=== PATIENT | male | born 1940 | race Caucasian/White ===

== ENCOUNTER 2022-07-16 10:16 | Emergency (ER) | payer MEDICARE, SELFPAY ==
--- NOTE | ~2022-07-16 | XR_ITS ---
EXAMINATION: XR hand LT min 3V INDICATION: Left hand pain, initial encounter TECHNIQUE: Three views of the left hand are obtained. COMPARISON: None available FINDINGS: There is an acute, traumatic, closed, comminuted fracture in the proximal neck of the first metacarpal. One plane of the fracture appears to extend to the first metacarpophalangeal joint. 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 No additional acute fracture is identified. 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 IMPRESSION: 1. Comminuted fracture in the proximal neck of the first metacarpal which appears to extend to the me tacarpophalangeal joint. Reviewed, dictated and finalized at location A. IMPRESSION: 1. Comminuted fracture in the proximal neck of the first metacarpal which appea rs to extend to the metacarpophalangeal joint.
--- NOTE | 2022-07-16 10:23 | ED.UPPEXIN ---
HPI - Extremity Injury (Upper) General Chief Complaint: Extremity Injury, Upper Stated Complaint: Fall Injury/Thumb Time Seen by Provider: 07/16/22 10:24 Source: patient and RN notes reviewed Mode of arrival: ambulatory Limitations: no limitations History of Present Illness HPI narrative: 82-year-old male presents to the [facility] with complaints of swelling and bruising to the left dorsal hand. States that he was try to get his pants on the middle the night when he fell and bumped his hand on something. Did not hurt his back. No hitting of his head. No loss of consciousness. Patient denies any pain in the hand, daughter was concerned because it is bruised and swollen. Full range of motion noted. Related Data Home Medications Medication Instructions Recorded Confirmed No Home Medications 07/16/22 07/16/22 Allergies Allergy/AdvReac Type Severity Reaction Status Date / Time No Known Allergies Allergy Verified 07/16/22 10:31 Review of Systems Review of Systems: All systems reviewed & are unremarkable except as noted in HPI and below Constitutional: Constitutional: Reports no additional constitutional complaints, Denies chills and Denies fever(s) Eyes: Eyes: Reports no additional eye complaints ENT: Reports system reviewed and no additional complaints, except as documented Cardiovascular: Cardiovascular: Reports no additional cardiovascular complaints Respiratory: Respiratory: Reports no additional respiratory complaints Gastrointestinal: Gastrointestinal: Reports no additional gastrointestinal complaints Musculoskeletal: Musculoskeletal: Reports as per HPI, Denies arthralgias and Reports joint swelling Integumentary/Breasts: Skin/Breast: Reports system reviewed and no additional complaints, except as docu Neurologic: Reports system reviewed and no additional complaints, except as documented Psychiatric: Psychiatric: Reports no additional psychiatric complaints Allergic/Immunologic: Allergic/Immunologic: Reports no additional allergic/immunologic complaints PMFSH Past Medical History Medical History No significant medical problems Surgical History Surgical History (Updated 07/16/22 @ 10:32 by Samantha Rodriguez APRN) H/O major orthopedic surgery Left knee History of tonsillectomy Comments At the time of my signature, I reviewed and agree with the nursing past medical, surgical, social, and family history. There is no relevant family history pertinent to the patient complaint. Exam Const: General: healthy appearing, no acute distress and alert Nutritional Appearance: well nourished Orientation/consciousness: patient oriented x3 Limitations: no limitations HENMT: Head: normal to inspection Ears: external ears normal Eyes: General: appearance normal, both eyes and all related structures Pupils: Equal, round and reactive pupils present Neck: Neck: normal visual inspection, no lymphadenopathy and no meningeal signs Chest: Chest palpation & inspection: normal inspection of the chest Resp: Effort & Inspection: normal respiratory effort and no use of accessory muscles Auscultation: clear to auscultation bilaterally, no crackles, no rales, no rhonchi and no wheezes Cardio: Rate: regular rate Rhythm: regular rhythm GI: GI Palp: Yes Soft to palpation and No Tenderness to palpation present (GI) Back/Spine/Pelvis: Cervical Spine: normal cervical lordosis Thoracic/Lumbar Spine: thoracic and lumbar spine normal to inspection Skin: General skin exam: normal color Rashes: no rashes Wounds: no wounds Neuro: General: patient oriented x3, moves all extremities, no meningeal signs and no focal motor deficits Cranial nerves: Yes Equal, round and reactive pupils present Speech: normal speech Gait exam (Neuro): Normal gait present Extrem: General: normal to inspection, full ROM and capillary refill normal Left upper extremity: hand normal cap
[2022-07-16 10:24] VITALS: BP 117/63; PULSE 92; RESP 20; TEMP 36.4; O2SAT 100
[2022-07-16 10:32] VITALS: BP 117/63; PULSE 92; RESP 20; TEMP 36.4; O2SAT 100
== END 2022-07-16 11:24 | disposition home or self-care (01) ==
PROVIDERS: Emergency Provider Nurse Practitioner; PCP Internal Medicine
DX: S62.252A Displaced fracture of neck of first metacarpal bone, left hand, initial encounter for closed fracture (principal); W22.8XXA Striking against or struck by other objects, initial encounter
CPT/HCPCS: 29125; 73130; 99204; A4565; G0463

== ENCOUNTER 2022-08-15 18:11 | Emergency (ER) | payer MEDICARE, SELFPAY ==
--- NOTE | ~2022-08-15 | XR_ITS ---
EXAMINATION: XR tibia fibula LT 2V DATE: 08/15/2022 18:56 INDICATION: Palpable knot at the left lower leg post injury 2 weeks prior TECHNIQUE: Anteroposterior and lateral views of the left tibia and fibula were obtained. COMPARISON: None. FINDINGS: Bone alignment is normal. No fracture. Minimal to mild polyarticular osteoarthritis at the left knee, ankle and visualized foot. Approximately 2 cm sclerotic lesion in the proximal metaphyseal region of the left tibia. Prominent dense soft tissue swelling anterior to the proximal left tibial diaphysis which given history of trauma most likely represents a hematoma. IMPRESSION: 1. Likely subcutaneous hematoma overlying the proximal left tibial diaphysis. No acute osseous abnorm ality. 2. 2 cm sclerotic lesion at the proximal left tibial metaphysis statistically most likely to represen t either benign chondroma, bone infarct or bone island. Metastatic disease with the unlikely in the p eripheral extremities. Correlate with any prior outside imaging and if clinically indicated or if the re is history of prior malignancy, bone scan could be obtained for further evaluation. Reviewed, dictated and finalized at location A. IMPRESSION: 1. Likely subcutaneous hematoma overlying the proximal left tibial diaphysis. N o acute osseous abnormality. 2. 2 cm sclerotic lesion at the proximal left tibial metaphysis statistically m ost likely to represent either benign chondroma, bone infarct or bone island. M etastatic disease with the unlikely in the peripheral extremities. Correlate wi th any prior outside imaging and if clinically indicated or if there is history of prior malignancy, bone scan could be obtained for further evaluation.
[2022-08-15 18:26] VITALS: BP 120/67; PULSE 88; RESP 20; TEMP 36.4; O2SAT 100
--- NOTE | 2022-08-15 18:51 | ED.LOWEXIN ---
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 Patient has raised tissue to left lower leg anterior sotelo area that is tender to palpation with increased pain with ambulation stated. Patient has some scabbing to tissue area and also some redness of skin with no warmth of tissue noted. Patient has strong left pedal pulse, patient denies any numbness or tingling to his left leg or foot. He reports that he has been applying ice and taking Ibuprofen complaint: leg injury Onset (ago): week(s) (2) Type of Injury: other (contusion) Severity scale (1-10): 5 Treatments prior to arrival: cold therapy and other (Ibuprofen) Related Data Allergies Allergy/AdvReac Type Severity Reaction Status Date / Time No Known Allergies Allergy Verified 08/15/22 18:41 Review of Systems Review of Systems: CONSTITUTIONAL: Denies fever, chills, or sweats. EYES: Denies visual changes, redness, or discharge. ENT: Denies rhinorrhea, congestion, sore throat, or otalgia. CARDIOVASCULAR: Denies chest pain, palpitations, or edema. RESPIRATORY: Denies cough or dyspnea. GASTROINTESTINAL: Denies abdominal pain, nausea, vomiting, or diarrhea. GENITOURINARY: Denies dysuria or hematuria. SKIN: Denies rash or itching.healing scabbed tissue to left lower leg with some redness to tissue area no acute warmth noted MUSCULOSKELETAL: Denies back pain, positive for pain to left lower leg anterior area,, or myalgia. NEUROLOGIC: Denies headache, numbness, or weakness. PSYCHIATRIC: Denies anxiety or depression. 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 There is no relevant family history pertinent to the presenting complaint Exam Narrative: GENERAL: Well-appearing, well-nourished, and in no acute distress. HEAD: Normocephalic, atraumatic. EYES: PERRLA and EOMI. ENT: Nares clear, no rhinorrhea or epistaxis. Mucous membranes moist.TM's normal, throat pink with no lesions, tonsils absent. NECK: Supple. no lymphadenopathy CHEST: Clear to auscultation. No respiratory distress.SAO2 100% on room air HEART: Regular rate and rhythm. No murmur heard. Normal peripheral pulses. ABDOMEN: Soft, nontender, nondistended, normal active bowel sounds. EXTREMITIES: Normal range of motion,swelling to anterior lower left leg sotelo area with increased pain with ambulation SKIN: Warm, dry, scabbed tissue with redness and swelling anterior lower left leg NEURO: No focal deficits. Alert and oriented x3. Course Course Level of Care: Express Care Visit Vital Signs Vital signs: Vital Signs Temperature 36.4 C 08/15/22 18:26 Pulse Rate 88 08/15/22 18:26 Respiratory Rate 20 08/15/22 18:26 Blood Pressure 120/67 08/15/22 18:26 Pulse Oximetry 100 08/15/22 18:26 Oxygen Delivery Room Air 08/15/22 18:26 Temperature 36.4 C 08/15/22 18:26 Pulse Rate 88 08/15/22 18:26 Respir
--- NOTE | 2022-08-15 19:59 | ED.LOWEXIN ---
HPI - Extremity Injury (Lower) General Chief Complaint: Extremity Injury, Lower Stated Complaint: Left leg injury Time Seen by Provider: 08/15/22 18:51 Source: patient, RN notes reviewed and old records reviewed Mode of arrival: ambulatory Limitations: no limitations History of Present Illness HPI Narrative: 8 Related Data Allergies Allergy/AdvReac Type Severity Reaction Status Date / Time No Known Allergies Allergy Verified 08/15/22 18:41 [facility] Past Medical History Medical History No significant medical problems Surgical History Surgical History (Updated 07/16/22 @ 10:32 by Samantha Rodriguez APRN) H/O major orthopedic surgery Left knee History of tonsillectomy Course Vital Signs Vital signs: Vital Signs Temperature 36.4 C 08/15/22 18:26 Pulse Rate 88 08/15/22 18:26 Respiratory Rate 20 08/15/22 18:26 Blood Pressure 120/67 08/15/22 18:26 Pulse Oximetry 100 08/15/22 18:26 Oxygen Delivery Room Air 08/15/22 18:26 Temperature 36.4 C 08/15/22 18:26 Pulse Rate 88 08/15/22 18:26 Respiratory Rate 20 08/15/22 18:26 Blood Pressure 120/67 08/15/22 18:26 Pulse Oximetry 100 08/15/22 18:26 Oxygen Delivery Room Air 08/15/22 18:26 MDM - Extremity Injury (Lower) Imaging Data My impression: hematoma Radiologist's impression: [facility] [address] [place] [address] XRay Report Signed Patient: Kelley Quintanilla : 1940 MR#: [id number] Age/Sex: 82 / M Acct:[id number] Loc: [facility]? ? ADM Date: 08/15/22Attending Dr: Ordering Physician: Cinthya Lugo APRN Date of Service: 08/15/22 Procedure(s): XR tibia fibula LT 2V Accession Number(s): [id number] cc: Diamond, Herve Mendoza MD; Cinthya Lugo APRN~ EXAMINATION: XR tibia fibula LT 2V DATE: 08/15/2022 18:56 INDICATION: Palpable knot at the left lower leg post injury 2 weeks prior TECHNIQUE: Anteroposterior and lateral views of the left tibia and fibula were obtained. COMPARISON: None. FINDINGS: Bone alignment is normal. No fracture. Minimal to mild polyarticular osteoarthritis at the left knee, ankle and visualized foot. Approximately 2 cm sclerotic lesion in the proximal metaphyseal region of the left tibia. Prominent dense soft tissue swelling anterior to the proximal left tibial diaphysis which given history of trauma most likely represents a hematoma. IMPRESSION: 1. Likely subcutaneous hematoma overlying the proximal left tibial diaphysis. No acute osseous abnormality. 2. 2 cm sclerotic lesion at the proximal left tibial metaphysis statistically most likely to represent either benign chondroma, bone infarct or bone island. Metastatic disease with the unlikely in the peripheral extremities. Correlate with any prior outside imaging and if clinically indicated or if there is history of prior malignancy, bone scan could be obtained for further evaluation. Reviewed, dictated and finalized at location A. Dictated By:? Dawood Rawls MD? 08/15/221936 Signed By:? ? <Electronically signed by? Dawood Rawls MD in OV> Critical Care Time Critical Care Time Critical Care Time: No Discharge Plan Discharge Clinical Impression: Hematoma of left lower leg, Redness and swelling of lower leg Patient Disposition: Home, Self-Care Condition: Stable Instructions: Antibiotic Form, Hematoma (ED) Additional Instructions: Elastic wrap or orthopedic splint as directed for comfort for the next 5-7 days Keep leg elevated is much as possible Tylenol for lesser pain Ibuprofen regularly for the next 2-3 days for the inflammation Follow-up with PCP if further problems or concerns Ice to the area 20-30 minutes 4-6 times a day Elevate above heart Follow-up with PCP in regards
== END 2022-08-15 20:10 | disposition home or self-care (01) ==
PROVIDERS: Emergency Provider Registered Nurse; PCP Internal Medicine
DX: S80.12XA Contusion of left lower leg, initial encounter (principal); X58.XXXA Exposure to other specified factors, initial encounter; L53.9 Erythematous condition, unspecified
CPT/HCPCS: 73590; 99213; G0463

== ENCOUNTER 2022-08-22 09:53 | Outpatient (CLI) | payer MEDICARE, SELFPAY ==
--- NOTE | ~2022-08-22 | XR_ITS ---
EXAM: XR wrist LT min 3V DATE: 08/22/2022 10:15 HISTORY: FRACTURE L 1ST METACARPAL, OUT OF CAST, 5 WKS POST . COMPARISON: 07/16/2022. FINDINGS: Comminuted proximal left first metacarpal fracture, stable alignment with unchanged medial angulation. Fracture lines are less visible. Callus is present. IMPRESSION: Proximal left first metacarpal fracture, healing with residual angulation. Reviewed, dictated and finalized at location K. IMPRESSION: Proximal left first metacarpal fracture, healing with residual angu lation.
== END 2022-08-22 09:54 | disposition home or self-care (01) ==
PROVIDERS: PCP Internal Medicine; Visit Provider Plastic Surgery
DX: S62.241D Displaced fracture of shaft of first metacarpal bone, right hand, subsequent encounter for fracture with routine healing (principal); X58.XXXD Exposure to other specified factors, subsequent encounter
CPT/HCPCS: 73110

== ENCOUNTER 2022-09-12 09:08 | Outpatient (CLI) | payer MEDICARE, SELFPAY ==
--- NOTE | ~2022-09-12 | XR_ITS ---
XR hand LT min 3V DATE: 09/12/2022 09:31 INDICATION: First metacarpal fracture TECHNIQUE: 3 views COMPARISON: 08/22/2022 left wrist FINDINGS: There is a comminuted fracture at the base and proximal shaft of the first metacarpal bone with mild lateral displacement and apex lateral angulation, without significant change in position or alignment since 08/22/2022. There is periosteal reaction consistent with Formation/healing. Normal alignment at the first carpometacarpal and first metacarpophalangeal joints. There is polyarticular osteoarthritis the wrist and hand. IMPRESSION: Healing fracture of base and proximal shaft of first metacarpal bone Reviewed, dictated and finalized at location A. IMPRESSION: Healing fracture of base and proximal shaft of first metacarpal bon grace
== END 2022-09-12 09:09 | disposition home or self-care (01) ==
PROVIDERS: PCP Internal Medicine; Visit Provider Plastic Surgery
DX: S62.242 Displaced fracture of shaft of first metacarpal bone, left hand (principal); X58.XXXD Exposure to other specified factors, subsequent encounter
CPT/HCPCS: 73130

== ENCOUNTER 2024-03-24 08:35 | Day surgery (SDC) | payer MEDICARE, SELFPAY ==
--- NOTE | ~2024-03-24 | XR_ITS ---
EXAMINATION: XR chest 1V portable DATE: 03/24/2024 09:22 INDICATION: Esophageal obstruction. TECHNIQUE: A single frontal view of the chest was obtained. COMPARISON: None. FINDINGS: There is no pneumonia, pleural effusion, or pneumothorax. The heart size is normal. IMPRESSION: 1. No acute cardiopulmonary disease. Reviewed, dictated and finalized at location A.
--- NOTE | 2024-03-24 08:46 | ED.EXTPRO ---
HPI - Extremity Problem General Chief complaint: Unspecified Stated complaint: diff swallowing Time Seen by Provider: 03/24/24 08:36 History of Present Illness HPI Narrative: 83-year-old male present to the emergency department for evaluation for difficulty swallowing since yesterday. Patient does report prior history of having temporary esophageal obstructions but typically resolves after just a few seconds to minutes. Patient was eating pork tenderloin yesterday approximately 2:30 p.m. and states he has been able to tolerate p.o. since then. Patient did fail a p.o. 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 Kidney stone Surgical History Surgical History (Updated 07/16/22 @ 10:32 by Samantha Rodriguez APRN) H/O major orthopedic surgery Left knee History of tonsillectomy Social History Social History (Updated 08/19/22 @ 16:33 by Cinthya Lugo NP) Smoking status: Never smoker Substance use type: does not use Living arrangements: with family Gender identity (if verbalized by the patient): Male Course Vital Signs Vital signs: Vital Signs Temperature 97.8 F 03/24/24 08:50 Pulse Rate 90 03/24/24 08:50 Respiratory Rate 18 03/24/24 08:50 Blood Pressure 122/70 03/24/24 08:50 Pulse Oximetry 100 03/24/24 08:50 Oxygen Delivery Room Air 03/24/24 08:50 Temperature 97.8 F 03/24/24 08:50 Pulse Rate 90 03/24/24 08:50 Respiratory Rate 18 03/24/24 08:50 Blood Pressure 122/70 03/24/24 08:50 Pulse Oximetry 100 03/24/24 08:50 Oxygen Delivery Room Air 03/24/24 08:50 MDM - Extremity (Nontraumatic) MDM Narrative Medical decision making narrative: 83-year-old male presented the emergency department for evaluation of suspected esophageal food impaction. Patient describes similar symptoms over the last few months but they typically resolve. Patient states he has had a football since approximately 230. GI was consulted and patient will be taken to the GI lab. On re-examination patient feels he is still unable to tolerate p.o.. Lab Data 03/24/24 09:11 03/24/24 09:11 Labs: Lab Results 03/24/24 Range/Units 09:11 WBC 18.2 H (4.5-10.0) K/mm3 RBC 5.01 (4.6-6.20) M/mm3 Hgb 15.6 (14.0-18.0) g/dL Hct 48.3 (42.0-52.0) % MCV 96.4 (80-100) fl MCH 31.1 (26-34) pg MCHC 32.3 (32-36) g/dl RDW 13.1 (11.5-14.5) % Plt Count 246 (150-375) k/mm3 MPV 9.7 (7.4-10.4) fl Immature Gran % (Auto) Not Reportable Neut % (Auto) Not Reportable Lymph % (Auto) Not Reportable [place] % (Auto) Not Reportable Eos % (Auto) Not Reportable Baso % (Auto) Not Reportable Lymph # (Auto) Not Reportable [place] # (Auto) Not Reportable Eos # (Auto) Not Reportable Baso # (Auto) Not Reportable Abs Immat Gran (auto) Not Reportable Absolute Neuts (auto) Not Reportable Absolute Nucleated RBC Not Reportable Total Counted 100 Neutrophils % (Manual) 58 (46-73) % Lymphocytes % (Manual) 38.0 (18-44) % Monocytes % (Manual) 4 (3-9) % Nucleated RBC % Not Reportable Abs Lymphs (Manual) 6.91 H (1.1-4.5) K/mm3 Abs Monocytes (Manual) 0.72 (0.1-0.90) K/mm3 Platelet Estimate Adequate (Adequate) Stomatocytes 1+ Schistocytes None seen PT 13.2 (11.1-14.7) Seconds INR 1.0 APTT 30.0 (22.3-36.8) Seconds Sodium 142 (137-145) mmol/L Potassium 4.1 (3.4-5.0) mmol/L Chloride 109 H (98-107) mmol/L Carbon Dioxide 24 (22-30) mmol/L Anion Gap 9 (4-12) mmol/L BUN 29 H (9-20) mg/dL Creatinine 1.50 H (0.7-1.3) mg/dL
[2024-03-24 08:50] VITALS: BP 122/70; PULSE 90; RESP 18; TEMP 36.6; O2SAT 100
[2024-03-24] MEDS: GLUCAGON FOR INJ 1 MG VIAL IM (08:58)
[2024-03-24 09:16] LABS: Hematocrit 48.3 % (42.0-52.0); Hemoglobin 15.6 g/dL (14.0-18.0); Mean Corpuscular HGB Conc 32.3 g/dl (32-36); Mean Corpuscular Hemoglobin 31.1 pg (26-34); Mean Corpuscular Volume 96.4 fl (80-100); Mean Platelet Volume 9.7 fl (7.4-10.4); Platelet Count Result 246 k/mm3 (150-375); Red Blood Count 5.01 M/mm3 (4.6-6.20); Red Cell Distribution Width 13.1 % (11.5-14.5); White Blood Count 18.2 K/mm3 (4.5-10.0)
[2024-03-24 09:26] LABS: Lymphocytes Absolute Manual 6.91 K/mm3 (1.1-4.5); Monocytes Absolute Manual 0.72 K/mm3 (0.1-0.90); Monocytes Percent Manual 4 % (3-9); Neutrophils Percent Manual 58 % (46-73); Platelet Estimate Adequate (Adequate); Schistocytes None Seen; Total Cells Counted 100
[2024-03-24 09:27] LABS: Stomatocytes 1+
[2024-03-24 09:29] LABS: Prothrombin Time 13.2 Seconds (11.1-14.7)
[2024-03-24 09:30] LABS: Alanine Aminotransferase 16 U/L (6-50); Albumin Level 4.8 g/dL (3.5-5.1); Alkaline Phosphatase 81 U/L (38-126); Anion Gap 9 mmol/L (4-12); Aspartate Amino Transferase 28 U/L (17-59); Bilirubin,Total 1.1 mg/dL (0.2-1.3); Blood Urea Nitrogen 29 mg/dL (9-20); Calcium 9.7 mg/dL (8.4-10.2); Carbon Dioxide 24 mmol/L (22-30); Chloride 109 mmol/L (98-107); Estimated CRCL calculation 30 ml/min; Estimated Glomerular Filt Rate 44; Glucose 119 mg/dL (65-110); Potassium 4.1 mmol/L (3.4-5.0); Sodium 142 mmol/L (137-145)
[2024-03-24 10:58] VITALS: BP 132/75; PULSE 75; RESP 18; O2SAT 100
--- NOTE | 2024-03-24 11:30 | WPDANESEPPF ---
Anes - Initial Pre Proc Eval Procedure: EGD with food bolus removal Date/Time: 03/24/24 11:30 Surgeon: Johann Medina MD Pre Op Diagnosis: food bolus Pre Op Diagnosis: diff swallowing Patient Data Age: 83 Gender: M Height: 1.7 m Weight: 77 kg Last Vital Signs Temp 36.6 C 03/24/24 08:50 Pulse 75 03/24/24 10:58 Resp 18 03/24/24 10:58 BP 132/75 03/24/24 10:58 Pulse Ox 100 03/24/24 10:58 O2 Del Method Room Air 03/24/24 08:50 Allergies Allergy/AdvReac Type Severity Reaction Status Date / Time No Known Allergies Allergy Verified 03/24/24 12:34 Home Medications Medication Instructions Recorded Confirmed Type cephalexin 500 mg capsule 500 mg PO Q12H #20 caps 08/15/22 Rx Laboratory Tests 03/24/24 09:11 WBC 18.2 H K/mm3 (4.5-10.0) RBC 5.01 M/mm3 (4.6-6.20) Hgb 15.6 g/dL (14.0-18.0) Hct 48.3 % (42.0-52.0) MCV 96.4 fl (80-100) MCH 31.1 pg (26-34) MCHC 32.3 g/dl (32-36) RDW 13.1 % (11.5-14.5) Plt Count 246 k/mm3 (150-375) MPV 9.7 fl (7.4-10.4) Immature Gran % (Auto) Not Reportable Neut % (Auto) Not Reportable Lymph % (Auto) Not Reportable [place] % (Auto) Not Reportable Eos % (Auto) Not Reportable Baso % (Auto) Not Reportable Lymph # (Auto) Not Reportable [place] # (Auto) Not Reportable Eos # (Auto) Not Reportable Baso # (Auto) Not Reportable Abs Immat Gran (auto) Not Reportable Absolute Neuts (auto) Not Reportable Absolute Nucleated RBC Not Reportable Total Counted 100 Neutrophils % (Manual) 58 % (46-73) Lymphocytes % (Manual) 38.0 % (18-44) Monocytes % (Manual) 4 % (3-9) Nucleated RBC % Not Reportable Abs Lymphs (Manual) 6.91 H K/mm3 (1.1-4.5) Abs Monocytes (Manual) 0.72 K/mm3 (0.1-0.90) Platelet Estimate Adequate (Adequate) Stomatocytes 1+ Schistocytes None seen PT 13.2 Seconds (11.1-14.7) INR 1.0 APTT 30.0 Seconds (22.3-36.8) Sodium 142 mmol/L (137-145) Potassium 4.1 mmol/L (3.4-5.0) Chloride 109 H mmol/L (98-107) Carbon Dioxide 24 mmol/L (22-30) Anion Gap 9 mmol/L (4-12) BUN 29 H mg/dL (9-20) Creatinine 1.50 H mg/dL (0.7-1.3) Estim Creat Clear Calc 30 ml/min Estimated GFR 44 L (59 - ) Glucose 119 H mg/dL (65-110) Calcium 9.7 mg/dL (8.4-10.2) Total Bilirubin 1.1 mg/dL (0.2-1.3) AST 28 U/L (17-59) ALT 16 U/L (6-50) Alkaline Phosphatase 81 U/L (38-126) Total Protein 8.0 g/dL (6.3-8.2) Albumin 4.8 g/dL (3.5-5.1) Patient hx anesthesia problems: none Family hx anesthesia problems: none Results Review: All pre-operative results and documents have been reviewed as part of the pre-operative evaluation. 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 Kidney stone Surgical History Surgical History (Updated 07/16/22 @ 10:32 by Samantha Rodriguez APRN) H/O major orthopedic surgery Left knee History of tonsillectomy Social History Social History (Updated 08/19/22 @ 16:33 by Cinthya Lugo NP) Smoking status: Never smoker Substance use type: does not use Living arrangements: with family Gender identity (if verbalized by the patient): Male Anes - Eval Final PreProcedure Day of Procedure 03/24/24 11:30 Patient weight: overweight Heart: regular rate and rhythm Lungs: clear to auscultation Airway: Mallampati scale class II Neurological: alert and oriented Last oral intake: >/= 8 hours ASA classification: II Emergent: yes Anesthetic plan: proceed Anesthesia type and monitoring: general (TIVA) ETT and standard monitoring Results Review: All pre-operative results and documents have been reviewed as part of the pre-operative evaluation. Informed
[2024-03-24 12:35] VITALS: BP 136/70; PULSE 78; RESP 22; TEMP 36.6; O2SAT 100
[2024-03-24] MEDS: LACTATED RINGERS 1,000 ML 150 ML IV CONT (12:44)
--- NOTE | 2024-03-24 12:58 | PM.HPGS ---
History of Present Illness History of Present Illness Consent: Risks, benefits, and alternatives have been discussed and questions answered. Patient agrees to proceed with procedure. Chief complaint: diff swallowing Narrative: Kelley Quintanilla is a 83 year old male here with food bolus after had pork chop, he had similar episodes but always cleared out, never had urgent EGD. 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 Kidney stone Surgical History Surgical History (Updated 07/16/22 @ 10:32 by Samantha Rodriguez APRN) H/O major orthopedic surgery Left knee History of tonsillectomy Social History Social History (Updated 08/19/22 @ 16:33 by Cinthya Lugo NP) Smoking status: Never smoker Substance use type: does not use Living arrangements: with family Gender identity (if verbalized by the patient): Male Meds Home Medications and Allergies Home Medications Medication Instructions Recorded Confirmed Type cephalexin 500 mg capsule 500 mg PO Q12H #20 caps 08/15/22 Rx Allergies Allergy/AdvReac Type Severity Reaction Status Date / Time No Known Allergies Allergy Verified 03/24/24 12:34 Vital Signs Vital Signs - 24 hr 03/24/24 08:50 03/24/24 10:58 03/24/24 12:35 Temperature 97.8 F 97.9 F Pulse Rate 90 75 78 Respiratory Rate 18 18 22 H Blood Pressure 122/70 132/75 136/70 Pulse Oximetry 100 100 100 Oxygen Delivery Room Air Room Air Exam Const: General: comfortable and no acute distress Other: pleasant elderly HENMT: Face/Nose/Sinus: Normal nares present Eyes: General: appearance normal, both eyes and all related structures Neck: Neck: no JVD Resp: Auscultation: clear to auscultation bilaterally Cardio: Rate: regular rate Rhythm: regular rhythm GI: Inspection: non-distended GI Palp: Yes Soft to palpation Auscultation: normal bowel sounds Skin: General skin exam: normal color Neuro: General: patient oriented x3 Speech: normal speech Extrem: General: normal to inspection Psych: Mental Status: mental status grossly normal Assessment and Plan Assessment and plan (1) Esophageal obstruction due to food impaction: Code(s): T18.128A - Food in esophagus causing other injury, initial encounter; [id number] - Food entering into or through a natural orifice, initial encounter Status: Acute Assessment and Plan: urgent EGD, had food bolus and last few months with dysphagia to solids
[2024-03-24 13:35] VITALS: BP 103/46; PULSE 71; RESP 21; TEMP 36.3; O2SAT 93
[2024-03-24 13:45] VITALS: BP 127/91; PULSE 77; RESP 19; O2SAT 97
[2024-03-24 13:55] VITALS: BP 142/79; PULSE 77; RESP 20; O2SAT 98
== END 2024-03-24 14:09 | disposition home or self-care (01) ==
LOC: ANHED 08:51 → ANHENDO 08:52
PROVIDERS: Emergency Provider Emergency Medicine; PCP Internal Medicine; Visit Provider Internal Medicine Gastroenterology
PROC: 0DJ08ZZ Inspection of Upper Intestinal Tract, Via Natural or Artificial Opening Endoscopic (ICD-10-PCS; CPT 43235; principal; 2024-03-24 12:30)
DX: T18.128A Food in esophagus causing other injury, initial encounter (principal); W44.F3XA Food entering into or through a natural orifice, initial encounter; K22.2 Esophageal obstruction; Z98.890 Other specified postprocedural states
CPT/HCPCS: 43247; 36415; 71045; 80053; 85025; 85610; 85730; 99285; J0330; J1610; J2704; J7120

== ENCOUNTER 2024-05-08 00:58 | Day surgery (SDC) | payer MEDICARE, SELFPAY ==
[2024-04-25 09:27] VITALS: BMI 26.6
[2024-05-08 13:08] VITALS: BP 131/55; PULSE 65; RESP 20; TEMP 35.7; O2SAT 98; BMI 26.3
[2024-05-08] MEDS: LACTATED RINGERS 1,000 ML 150 ML IV CONT (13:25)
--- NOTE | 2024-05-08 13:39 | P.PNAN_ITS ---
Anes - Initial Pre Proc Eval Procedure: Operation Date: 05/08/24 14:00 Proposed Procedures p Esophagogastroduodenoscopy - Johann Medina MD Date/Time: 05/08/24 13:39 Surgeon: Johann Medina MD Pre Op Diagnosis: Dysphagia, esophageal obstruction Patient Data Age: 83 Gender: M Height: 1.7 m Weight: 76.2 kg Last Vital Signs Temp 96.2 F L 05/08/24 13:08 Pulse 65 05/08/24 13:08 Resp 20 05/08/24 13:08 BP 131/55 L 05/08/24 13:08 Pulse Ox 98 05/08/24 13:08 O2 Del Method Room Air 05/08/24 13:08 Allergies Allergy/AdvReac Type Severity Reaction Status Date / Time No Known Allergies Allergy Verified 05/08/24 13:06 Home Medications Medication Instructions Recorded Confirmed Type omeprazole 40 mg capsule,delayed 40 mg PO DAILY 05/08/24 05/08/24 History release Patient hx anesthesia problems: none Family hx anesthesia problems: none Results Review: All pre-operative results and documents have been reviewed as part of the pre- operative evaluation. 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 Dysphagia Esophageal ring Kidney stone Surgical History Surgical History H/O major orthopedic surgery Left knee History of tonsillectomy Social History Social History Smoking packs per day: 0.5 Smoking cigarettes per day: 10.0 Years smoked: 20 Smoking pack-years: 10.00 Smoking status: Former smoker Additional smoking assessment comments: 1994 Alcohol intake: never Substance use: never Substance use type: does not use Living arrangements: alone Gender identity (if verbalized by the patient): Male Spiritual care concerns: No Anes - Eval Final PreProcedure Day of Procedure 05/08/24 13:39 Patient weight: normal Heart: regular rate and rhythm Lungs: clear to auscultation Airway: Mallampati scale and special considerations (Edentulous. ) Neurological: alert and oriented Last oral intake: >/= 8 hours ASA classification: II Emergent: no Anesthetic plan: proceed Anesthesia type and monitoring: general GIVS and standard monitoring Results Review: All pre-operative results and documents have been reviewed as part of the pre- operative evaluation. Pt very active w walking/gym, water workout, no cp or sob. Informed Consent: The patient's anesthetic plan and its attendant risks and benefits were discussed with the patient/family/POA. Questions were solicited and answers provided to the satisfaction of the patient/family/POA.
--- NOTE | 2024-05-08 13:57 | PM.HPGS ---
History of Present Illness History of Present Illness Consent: Risks, benefits, and alternatives have been discussed and questions answered. Patient agrees to proceed with procedure. Chief complaint: Dysphagia, esophageal obstruction Narrative: Kelley Quintanilla is a 83 year old male with food bolus last month, since was started on omeprazole, no more episodes. 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 Dysphagia Esophageal ring Kidney stone Surgical History Surgical History H/O major orthopedic surgery Left knee History of tonsillectomy Social History Social History Smoking packs per day: 0.5 Smoking cigarettes per day: 10.0 Years smoked: 20 Smoking pack-years: 10.00 Smoking status: Former smoker Additional smoking assessment comments: 1995 Alcohol intake: never Substance use: never Substance use type: does not use Living arrangements: alone Gender identity (if verbalized by the patient): Male Spiritual care concerns: No Meds Home Medications and Allergies Home Medications Medication Instructions Recorded Confirmed Type omeprazole 40 mg capsule,delayed 40 mg PO DAILY 05/08/24 05/08/24 History release Allergies Allergy/AdvReac Type Severity Reaction Status Date / Time No Known Allergies Allergy Verified 05/08/24 13:06 Vital Signs Vital Signs - 24 hr 05/08/24 13:08 Temperature 96.2 F L Pulse Rate 65 Respiratory Rate 20 Blood Pressure 131/55 L Pulse Oximetry 98 Oxygen Delivery Room Air Exam Const: General: comfortable and no acute distress HENMT: Face/Nose/Sinus: Normal nares present Eyes: General: appearance normal, both eyes and all related structures Neck: Neck: no JVD Resp: Auscultation: clear to auscultation bilaterally Cardio: Rate: regular rate Rhythm: regular rhythm GI: Inspection: non-distended GI Palp: Yes Soft to palpation Skin: General skin exam: normal color Neuro: General: gait normal Speech: normal speech Extrem: General: normal to inspection Psych: Mental Status: mental status grossly normal Assessment and Plan Assessment and plan (1) Esophageal ring: Code(s): K22.2 - Esophageal obstruction Status: Acute Assessment and Plan: egd, previous food bolus will assess if needs dilatation
[2024-05-08 14:08] VITALS: BP 136/66; PULSE 65; RESP 18; O2SAT 97
[2024-05-08 14:18] VITALS: BP 108/54; PULSE 76; RESP 16; O2SAT 99
[2024-05-08 14:28] VITALS: BP 117/53; PULSE 63; RESP 20; O2SAT 100
== END 2024-05-08 14:46 | disposition home or self-care (01) ==
PROVIDERS: PCP Internal Medicine; Visit Provider Internal Medicine Gastroenterology
PROC: 0DJ08ZZ Inspection of Upper Intestinal Tract, Via Natural or Artificial Opening Endoscopic (ICD-10-PCS; CPT 43235; principal; 2024-05-08 14:00)
DX: K22.2 Esophageal obstruction (principal); Z87.891 Personal history of nicotine dependence
CPT/HCPCS: 43249; C1726; J2704; J7120